=== PATIENT | female | born 1940 | race Two or more races ===

== ENCOUNTER 2017-05-26 12:43 | Emergency (ER) | payer OTHER ==
[~2017-05-26] VITALS: Ht 157.5 cm; Wt 81.6 kg
[~2017-05-26 12:43] MED LIST: ARICEPT10 MG PO; AVAPRO300 MG PO; Aricept 10 MG TABLET PO; Avapro PO; BACTROBAN NASAL; CEFADROXIL500 MG PO; Colace 100MG PO; DIABETIC T200 MG/5 M PO; GLIMEPIRIDE4 MG PO; HALDOL 1 MG PO; HALOPERIDOL1 MG PO; HIBICLENS TP; HUMALOG100 U/ML; HumaLOG 100 UNIT/1 ML (3ML) SUBCUTANEO; LEVAQUIN750 MG PO; Lantus 1000 U/10 ML SUBCUTANEO; METFORMIN HCL500 MG PO; NAMENDA10 MG PO; NORVASC 5MG TAB PO; NORVASC5 MG PO; Namenda PO; OSEL75CA PO; PERCOCET 5/3251 TAB PO; PROTONIX20 MG PO; RESTORIL30 MG PO; SEPTRA DS TABLE1 TAB PO; TOPROL XL50 M1 PO; Temazepam PO; Toprol Xl 50MG TAB PO; XARELTO10 MG PO; XOPENEX1.25 MG/0. IH; ZOCOR20 MG PO; ZOLOFT50 MG PO; ZoLOFT 50MG TABLET PO
[2017-05-26] MEDS ORDERED: AMLODIPINE BESYL5 MG PO (13:24)
[2017-05-26] MEDS ORDERED: ARICEPT10 MG PO (13:25)
[2017-05-26] MEDS ORDERED: HALOPERIDOL1 MG PO (13:25)
[2017-05-26] MEDS ORDERED: AVAPRO300 MG PO (13:25)
[2017-05-26] MEDS ORDERED: NAMENDA10 MG PO (13:26)
[2017-05-26] MEDS ORDERED: TOPROL XL50 M1 PO (13:26)
[2017-05-26] MEDS ORDERED: PROTONIX40 MG PO (13:26)
[2017-05-26] MEDS ORDERED: ZOCOR20 MG PO (13:27)
[2017-05-26] MEDS ORDERED: ZOLOFT50 MG PO (13:27)
[2017-05-26] MEDS ORDERED: RESTORIL30 MG PO (13:27)
[2017-05-26] MEDS ORDERED: LANTUS SOL100 UNIT/1 SQ (13:28)
[2017-05-26] MEDS ORDERED: HUMALOG100 UNIT/1 SQ (13:28)
== END 2017-05-26 22:03 | disposition home or self-care (01) ==
LOC: ER 12:43
DX: J22 Unspecified acute lower respiratory infection (principal); E11.65 Type 2 diabetes mellitus with hyperglycemia; J11.1 Influenza due to unidentified influenza virus with other respiratory manifestations; N39.0 Urinary tract infection, site not specified; B96.20 Unspecified Escherichia coli [E. coli] as the cause of diseases classified elsewhere

== ENCOUNTER 2017-10-09 09:30 | Emergency (ER) | payer OTHER ==
[~2017-10-09] VITALS: Ht 152.4 cm; Wt 81.6 kg
[~2017-10-09 09:30] MED LIST changes: +AMLODIPINE BESYL5 MG PO; +HUMALOG100 UNIT/1 SQ; +LANTUS SOL100 UNIT/1 SQ; +PROTONIX40 MG PO
[2017-10-09] MEDS ORDERED: IRBESARTAN300 MG (09:48)
== END 2017-10-09 19:49 | disposition home or self-care (01) ==
LOC: ER 09:30
DX: E11.65 Type 2 diabetes mellitus with hyperglycemia (principal); J44.9 Chronic obstructive pulmonary disease, unspecified; J06.9 Acute upper respiratory infection, unspecified; G30.8 Other Alzheimer's disease; F02.80 Dementia in other diseases classified elsewhere, unspecified severity, without behavioral disturbance, psychotic disturbance, mood disturbance, and anxiety